=== PATIENT | female | born 1940 | race Caucasian/White ===

== ENCOUNTER → 2016-07-01 | Day surgery (SDC) | payer MEDICARE, OTHER ==
[~2016-07-01] VITALS: Ht 167.6 cm; Wt 92.9 kg
[~2016-07-01] MED LIST: CPAP INH; DELTASONE20 MG PO; FLEXERIL10 MG PO; FLONASE 50 MCG/16 GM NOSE; LIPITOR10 MG PO; MECLIZINE HCL25 MG PO; MULTAQ400 MG PO; NORCO 5-325 TA1 EACH PO; OMNICEF 300MG300 MG PO; PRILOSEC20 MG PO; XARELTO20 MG PO; [UNRECOGNIZED DRUG - OTHER] PO; [UNRECOGNIZED DRUG - OTHER] PO; [UNRECOGNIZED DRUG - OTHER] PO
--- NOTE | ~2016-07-01 | OR ---
PATIENT'S NAME: QIANA GÓMEZ [facility] AGE: 75 Y [address] ROOM: [place] [address] LOCATION: [facility] ADMIT DATE: 07/01/2016 OR/Procedure Report DISCHARGE DATE: FAMILY PHYSICIAN: Aminah Villareal MD ATTENDING PHYSICIAN: Aminah Villareal SURGEON: Logan Stanton MD [employer] ARCHITECT: DATE OF PROCEDURE: 07/01/2016 PROCEDURE PERFORMED: Colonoscopy with polypectomy. INDICATION: Anemia. MEDICATIONS: Please see anesthesiology record for details. CONSENT: The risks/benefits/alternatives were discussed and the patient or her power of insurance defense attorney expressed understanding and agreed to proceed. Informed consent was obtained and placed on the chart. Time-out was completed prior to starting the procedure. PROCEDURE: Patient was placed in the left lateral decubitus position. One lead EKG monitoring was used along with intermittent blood pressure monitoring and pulse oximetry. The above medications were given and titrated to response. Once adequate sedation was completed, rectal exam was performed. The colonoscope was then passed through the rectum, into the sigmoid colon. The scope was then passed through the descending, transverse and ascending colon. The scope was then passed into the cecum. The cecum was identified by the ileocecal valve and appendiceal orifice. The scope was then withdrawn. On withdrawal, the mucosa of the colon was examined. In the rectum, retroflexion was completed. The scope was then withdrawn from the patient. The patient tolerated the procedure well. There were no complications. SUMMARY OF FINDINGS: 1. A 2 mm ascending colon polyp, removed using snare with cautery. 2. Normal colonic mucosa. There was no blood in the colon or any other large lesions. 3. Internal hemorrhoids grade 2, medium, nonbleeding. 4. Diverticulosis, mainly in the sigmoid colon. ASSESSMENT AND PLAN: Anemia: Nothing seen on colonoscopy to explain the patient's symptoms. There was no evidence anywhere in the GI tract or any blood loss. I recommend following her hemoglobin as an outpatient and treating with iron accordingly if is iron deficient. No plan for further GI workup at this time. If no source is found down the road and her hemoglobin does not come up appropriately, a capsule endoscopy could be consider to PATIENT'S NAME: QIANA GÓMEZ [facility] AGE: 75 Y [address] ROOM: [place], [place] [address] LOCATION: GEND ADMIT DATE: 07/01/2016 OR/Procedure Report DISCHARGE DATE: FAMILY PHYSICIAN: Aminah Villareal MD ATTENDING PHYSICIAN: Aminah Villareal evaluate small bowel; however, I do not think that is necessary at this time. J LAURA STANTON MD JRT/modl /[id number] d: 07/01/16 1640 t: 07/04/16 1431, OPERATIVE SUMMARY
--- NOTE | ~2016-07-01 | OR ---
PATIENT'S NAME: QIANA GÓMEZ [facility] AGE: 75 Y [address] ROOM: [place] [address] LOCATION: [facility] ADMIT DATE: 07/01/2016 OR/Procedure Report DISCHARGE DATE: FAMILY PHYSICIAN: Aminah Villareal MD ATTENDING PHYSICIAN: Aminah Villareal SURGEON: Logan Stanton MD [employer] COACH: DATE OF PROCEDURE: 07/01/2016 PROCEDURE PERFORMED: Esophagogastroduodenoscopy with biopsies. INDICATIONS: Anemia. MEDICATIONS: Please see anesthesiology record for details. CONSENT: The risks/benefits/alternatives were discussed and the patient or her power of criminal defense attorney expressed understanding and agreed to proceed. Informed consent was obtained and placed in the chart. Time-out was completed prior to starting the procedure. PROCEDURE: Patient was placed in the left lateral decubitus position. One- lead EKG monitoring was used along with intermittent blood pressure monitoring and pulse oximetry. Bite block was placed in the patient's mouth. The above medications were given and titrated to response. Once adequate sedation was completed, the endoscope was passed through the patient's mouth into the posterior oropharynx. The endoscope was then passed into the esophagus, stomach and duodenal bulb. The duodenum was examined through the third portion. The endoscope was then withdrawn into the stomach. In the stomach, retroflexion was completed. The scope was then straightened and withdrawn from the patient. The patient tolerated the procedure well. There were no complications. SUMMARY OF FINDINGS: 1. Normal proximal esophagus. 2. Distal esophagus with an irregular Z-line, highly suspicious for Carter's esophagus, two different 1-cm tongues were noted and biopsied. 3. Hiatal hernia about 4 cm. 4. Normal stomach. Status post biopsy due to the history of H. pylori. 5. Normal duodenum, status post biopsy to rule out celiac disease given the patient's anemia. ASSESSMENT AND PLAN: Anemia: Nothing obvious on exam today to explain the patient's anemia. 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 We will await biopsies for further recommendations. PATIENT'S NAME: QIAAN GÓMEZ [facility] AGE: 75 Y [address] ROOM: [place] [address] LOCATION: [facility] ADMIT DATE: 07/01/2016 OR/Procedure Report DISCHARGE DATE: FAMILY PHYSICIAN: Aminah Villareal MD ATTENDING PHYSICIAN: Aminah Villareal J LAURA STANTON MD JRT/modl /[id number] d: 07/01/16 1625 t: 07/04/16 1428, OPERATIVE SUMMARY
== END ==
LOC: GPOC 06-24 15:00 → GEND 08:33 → GPOC 09:00
PROC: 0DB88ZX Excision of Small Intestine, Via Natural or Artificial Opening Endoscopic, Diagnostic (ICD-10-PCS; principal; 2016-07-01)
PROC: 0DB48ZX Excision of Esophagogastric Junction, Via Natural or Artificial Opening Endoscopic, Diagnostic (ICD-10-PCS; 2016-07-01)
PROC: 0DB68ZX Excision of Stomach, Via Natural or Artificial Opening Endoscopic, Diagnostic (ICD-10-PCS; 2016-07-01)
PROC: 0DBK8ZX Excision of Ascending Colon, Via Natural or Artificial Opening Endoscopic, Diagnostic (ICD-10-PCS; 2016-07-01)
DX: D12.2 Benign neoplasm of ascending colon (principal); K64.8 Other hemorrhoids; K57.30 Diverticulosis of large intestine without perforation or abscess without bleeding; I25.10 Atherosclerotic heart disease of native coronary artery without angina pectoris; I48.91 Unspecified atrial fibrillation; E78.5 Hyperlipidemia, unspecified; K21.9 Gastro-esophageal reflux disease without esophagitis; M19.90 Unspecified osteoarthritis, unspecified site; G47.33 Obstructive sleep apnea (adult) (pediatric); Z88.0 Allergy status to penicillin; Z88.2 Allergy status to sulfonamides; Z79.899 Other long term (current) drug therapy
CPT/HCPCS: J7030

== ENCOUNTER → 2016-08-16 | Outpatient (CLI) | payer MEDICARE, OTHER | END | disposition disaster alternative care site (69) | LOC: GBCOE 09:02 | DX: Z12.31 Encounter for screening mammogram for malignant neoplasm of breast (principal) | CPT/HCPCS: G0202 ==

== ENCOUNTER 2016-10-25 14:00 | Observation (INO) | payer MEDICARE, OTHER ==
[~2016-10-25] VITALS: Ht 167.6 cm; Wt 94.2 kg
--- NOTE | ~2016-10-25 | ER ---
PATIENT'S NAME: QIANA GÓMEZ [facility] AGE: 76 Y [address] ROOM: [address] [address] LOCATION: [facility] [place] ADMIT DATE: 10/25/2016 ER/Outpatient Report DISCHARGE DATE: FAMILY PHYSICIAN: Aminah Villareal MD ATTENDING PHYSICIAN: BARRY PHILLIPS Time of Arrival: 1400. Time Seen: 1429. IDENTIFICATION: 76-year-old female. CHIEF COMPLAINT: Headache and ringing in her ears. HISTORY OF PRESENT ILLNESS: The patient is a very pleasant 76-year-old female from who was referred here by Dr. Li. She will be on admission per Dr. Matthews. Dr. Matthews was contacted. He did want her to go ahead and be evaluated initially in the emergency room but plan for admission per the hospitalist service. Past history dates back to the last couple of months, she started out with a ringing in her ear and a pressure sensation on the right side of her head. She was treated with meclizine and antibiotics by Dr. Villareal on September 14. Her symptoms persisted. She was evaluated by Dr. Li on and had an MRI on the , all of that evaluation and workup was negative. She was given prednisone and Callie on the by Dr. Villareal and then just recently was started on cefdinir antibiotic in [place] by her physician there. Her symptoms are unchanged. She saw Dr. Li today in [place] in the clinic and was recommended for her to come to [facility] to have a spinal tap. She complains of right-sided facial and head pressure, dizziness. No nausea or vomiting, and she does have persistent ringing in her right ear. She has had some fever in the past, but she is afebrile here. She has slight nausea, no vomiting, and she has some dizziness which she describes as a spinning sensation, worse with movement. PAST MEDICAL HISTORY: ALLERGIES: TO PENICILLIN, SULFA, AND PRADAXA. CURRENT MEDICATIONS: 1. Cefdinir 300 mg b.i.d., three days left. 2. Xarelto 20 mg at bedtime. Last dose was last night. 3. Multaq 400 mg b.i.d. 4. Omeprazole 20 mg b.i.d. PATIENT'S NAME: QIANA GÓMEZ [facility] AGE: 76 Y [address] ROOM: [id number], [place] [address] LOCATION: [facility] [place] ADMIT DATE: 10/25/2016 ER/Outpatient Report DISCHARGE DATE: FAMILY PHYSICIAN: Aminah Villareal MD ATTENDING PHYSICIAN: BARRY PHILLIPS 5. Atorvastatin 10 mg daily. MEDICAL PROBLEMS: Atrial fibrillation, DVT, hyperlipidemia, gastroesophageal reflux disease. PRIOR SURGERIES: Endoscopy, tonsillectomy, adenoidectomy, carpal tunnel repair, cholecystectomy, partial hysterectomy. SOCIAL HISTORY: The patient is . Lives in [place] with her . Tobacco use, denies. Alcohol use, denies. Drug use, denies. FAMILY HISTORY: No pertinent family history identified. REVIEW OF SYSTEMS: All systems reviewed and negative other than what is noted in the HPI. PHYSICAL EXAMINATION: VITAL SIGNS: Height 5 feet and 6 inches, weight 94.3 kg. Blood pressure 165/72, pulse 66, respirations 18, temperature 97, saturations 99%. GENERAL: This is a 76-year-old female, in no acute distress. HEENT: Head: Normocephalic, atraumatic. Ears: TMs translucent to both ears. Eyes: Pupils equal and reactive to light and accommodation. Extraocular movements intact. No nystagmus is appreciated, but it does reproduce her symptoms. Nose; mucosa pink. No lesions or drainage. Mouth; no lesions. Pharynx benign. NECK: Supple. No lymphadenopathy. No nuchal rigidity. LUNGS: Clear to auscultation. Breath sounds are equal. HEART: Regular rate and rhythm. No murmur, rub, or gallop. ABDOMEN: Bowel sounds present. Soft and nondistended. No hepatosplenomegaly. No palpable masses. Nontender. SKIN: [address], warm, and dry. No lesions or rashes noted. NEUROLOGIC: The patient is alert and oriented x4. Cranial nerves 2 through 12 grossly intact. Motor strength 5/5 throughout. Sensation is intact to light touch. LABORATORY DATA AND IMAGING STUDIES: Head CT without contrast, negative per Dr. Adair, radiologist. Hemoglobin 12.6, hematocrit 38.1, platelets 313, white count 5.8, with a normal differential. Sodium 141, potassium 3.9, chloride 109, CO2 of 24, BUN 22, creatinine 1.1, blood sugar 108. Liver enzymes normal. CRP 0.75. Sedimentation rate of 30. Lactate 1.0. Procalcitonin less than 0.05. PATIENT'S NAME: QIANA GÓMEZ [facility] AGE: 76 Y [address] ROOM: [place] [address] LOCATION: [facility] [place] ADMIT DATE: 10/25/2016 ER/Outpatient Report DISCHARGE DATE: FAMILY PHYSICIAN: Aminah Villareal MD ATTENDING PHYSICIAN: BARRY PHILLIPS EMERGENCY DEPARTMENT COURSE: An IV was initiated. Records were reviewed. We did speak with Dr. Matthews as well as Dr. Phillips, hospitalist. The patient had lab work done on October 12 to include a sedimentation rate of 5, ferritin 12.6, iron 63, iron binding capacity 430, hemoglobin 12.6, hematocrit 38.6, platelets 338, white count, 13. IMPRESSION AND PLAN: Head pressure and dizziness persisting for two months, unrelenting. The patient will be admitted, observation per the hospitalist service. Her Xarelto will be held for potential spinal tap to be performed tomorrow. Dr. Phillips evaluated the patient in the emergency room. DORITA VILLASENOR MD CAR/modl /[id number] d: 10/25/162141 t: 11/02/162040, OUTPATIENT REPORT
--- NOTE | ~2016-10-25 | HP ---
PATIENT'S NAME: QIANA GÓMEZ [facility] AGE: 76 Y [address] ROOM: [address] [address] [place] [facility] [place] DATE: 10/25/2016 History & Physical DISCHARGE DATE: FAMILY PHYSICIAN: Aminah Villareal MD ATTENDING PHYSICIAN: BARRY WANG DATE OF SERVICE: 10/25/2016 CHIEF COMPLAINT: Ear and facial pain, dizziness, tinnitus, ongoing headache. HISTORY OF PRESENT ILLNESS: This is a very pleasant 76-year-old female, who presents today at request of her outside ENT physician, Dr. Li as well as her primary care doctor, Dr. Villareal for further evaluation of ongoing right-sided frontal facial pain with associated headache, this has been ongoing and progressive over the past two to two and half months. Workup as an outpatient has been extensive and includes an MRI, which patient reports has been done on September 15 at [facility] [place]. She has also been treated with antibiotics for concern for otitis media as potentially contributing versus sinusitis, without any improvement in this. She recently was treated with prednisone and Callie. This was done at the end of September with no improvement. She was recently started on cefdinir subsequently as a next attempted antibiotic therapy again without improvement. She notes her primary complaint today is right head pressure not described as pain. She does have a medical history notable for atrial fibrillation and history of DVT x2 and is on Xarelto chronically. Other workup from PCPs office was sent for review, notes a recent sedimentation rate of 5. White blood cell count that was 13 on October 12, is now 5.8 in the emergency department. The patient does deny any recent fevers. Also of note, the patient denies any significant travel history of late. She does note that she had multiple mosquito bites around time of symptom onset a couple of months ago, but feels these were no different than the typical mosquito bite and incidental. PAST MEDICAL HISTORY: 1. Atrial fibrillation, on Xarelto. 2. History of DVT x2. 3. GERD. 4. Hyperlipidemia. 5. Internal hemorrhoids. 6. Chronic anemia. 7. Vertigo as documented above. PAST SURGICAL HISTORY: Reviewed and noncontributory to current presentation. PATIENT'S NAME: QIANA GÓMEZ [facility] AGE: 76 Y [address] ROOM: [address] [address] [place] [facility] [place] DATE: 10/25/2016 History & Physical DISCHARGE DATE: FAMILY PHYSICIAN: Aminah Villareal MD ATTENDING PHYSICIAN: BARRY WANG FAMILY HISTORY: Fully reviewed, notable for some generalized heart disease as well as diabetes, otherwise unremarkable and noncontributory to current presentation. SOCIAL HISTORY: The patient is a lifelong nonsmoker. Although she states she "experimented with this as a young teenager", and is a nondrinker also. Lives with her . ALLERGIES: PENICILLIN'S CAUSING HIVES. SULFA DRUGS ALSO CAUSING HIVES. PRADAXA CAUSING PRURITUS. MEDICATIONS: Currently being reconciled though notable for: 1. Xarelto 20 mg at bedtime. 2. Multaq 400 mg b.i.d. 3. Omeprazole 20 mg b.i.d. 4. Atorvastatin 10 mg at bedtime. No recent new medications as the patient has been sporadic and taking meclizine, which was also recently prescribed. REVIEW OF SYSTEMS: Complete review of systems performed and negative except as noted above in HPI. PHYSICAL EXAMINATION: VITAL SIGNS: Reviewed in the ER notable for temp 97.0, pulse 66, blood pressure 165/72, respirations 18, saturating 99% on room air. Weight 94.3 kg. Pain currently 3/10. GENERAL: The patient is in no acute distress, alert, and lying comfortably in the emergency department bed. HEAD: Normocephalic and atraumatic. EARS: Normal external pinna. No appreciable swelling periarticularly. TMs visualized bilaterally and clear. Left ear with mild punctate hemorrhage of external canal likely secondary to recent instrumentation. EYES: Pupils equal, round, and reactive to light. Extraocular muscles intact. No nystagmus appreciated. No scleral icterus or conjunctival injection. CARDIOVASCULAR: Regular rate and rhythm. No murmurs, rubs, or gallops appreciated. 2+ pulses bilaterally in radial and dorsalis pedis. No peripheral edema. LUNGS: Clear to auscultation bilaterally, saturating well on room air with normal respiratory effort. ABDOMEN: Soft, nontender, and nondistended. Normoactive bowel sounds. PATIENT'S NAME: QIANA GÓMEZ [facility] AGE: 76 Y [address] ROOM: [address] [address] [place] [facility] [place]MIT DATE: 10/25/2016 History & Physical DISCHARGE DATE: FAMILY PHYSICIAN: Aminah Villareal MD ATTENDING PHYSICIAN: BARRY WANG EXTREMITIES: Without lesion or edema as noted above. SKIN: Benign exam of trunk and exposed extremities. NEUROLOGIC: The patient is alert and oriented x3. Cooperative and pleasant with exam without focal deficits including no strength or sensory deficits appreciated on my exam. LABS AND IMAGING: Lab and imaging reviewed and notable for a white count of 5.8, lactic acid 1.0. CT head, negative for acute abnormality. ASSESSMENT: 1. Chronic otalgia. 2. Chronic atrial fibrillation, anticoagulated. 3. History of deep venous thrombosis. 4. Gastroesophageal reflux. PLAN: Difficult to ascertain the etiology of chronic otalgia with associated tinnitis. Per PCPs office, MRI performed, ruling out acoustic neuroma or other anatomical abnormality. We will work to obtain results of this MRI. No other recent infectious concerns though white count was elevated recently. The patient also had been on recent steroids. No indication currently for antibiotic therapy. We will further workup with LP once off Xarelto, last dose was the evening of October 24, so we will hold off on this dose tonight and consider LP with Neurology in the morning. We will send for CSF studies to include potentially infectious panel by PCR most notably for West Nile, also we will send cell count protein glucose and obtain opening pressure on at the time of LP and further studies will be pending this evaluation. As noted above, CT head was negative as was MRI recently. We will attempt to diagnose and treat any acute potential cause for her ongoing symptoms now over a subacute time frame, and if workup unfruitful, likely will be stable for discharge 1-2 days with outpatient followup and potentially with headache specialist. The patient is full code. I spent 35 minutes on date of admission in direct patient care and coordination of plan of care. BARRY WANG MD JDS/modl PATIENT'S NAME: QIANA GÓMEZ [facility] AGE: 76 Y [address] ROOM: [address] [address] [place]: [facility] [place] DATE: 10/25/2016 History & Physical DISCHARGE DATE: FAMILY PHYSICIAN: Aminah Villareal MD ATTENDING PHYSICIAN: BARRY WANG /[id number] D: [id number] T: [id number] HISTORY & PHYSICAL
--- NOTE | ~2016-10-25 | CON ---
PATIENT'S NAME: QIANA GÓMEZ [facility] AGE: 76 Y [address] ROOM: [address] [address] [place] [facility] [place]: 10/25/2016 Consultation DISCHARGE DATE: 10/27/2016 FAMILY PHYSICIAN: Aminah Villareal MD ATTENDING PHYSICIAN: Andrzej Phillips DATE OF CONSULTATION: 10/26/2016 REASON FOR CONSULTATION: The patient was seen in neurologic consultation on October 262016, at the request of the hospitalist, Dr. Phillips. HISTORY OF PRESENT ILLNESS: Ms. Gómez is a pleasant, 76-year-old female patient, who was sent to our hospital by her primary care physician. Essentially, the patient has no significant prior medical history, other than atrial fibrillation for which she has been maintained on Xarelto and a history of DVT. The patient states that she has been experiencing a headache that she characterizes as a migraine headache associated with photophobia and phonophobia lasting for about 1 month. It came fairly much out of the blue. In the past history, she denies having a history of migraine headaches. Her headache was almost exclusively right side of the face and involved mostly the right frontal region of the head, also there was some radiation of the pain to the temporal region of the head and down into the right lateral portion of the neck. The patient in the outpatient setting had an extensive workup to rule out any intracranial process including an MRI on September 15, which she was reported to be normal. She was apparently treated with antibiotics for middle ear infection versus a sinusitis infection. Her headache did not improve. Furthermore, she was given a short dose of prednisone as well as antihistamines. Headaches have been absolutely constant and had not been relieved with puan-[id number] medicines for pain such as Tylenol. Further workup at her physician's office revealed a normal sedimentation rate and essentially normal white count. The patient denies any recent upper respiratory tract infections and she denies any meningismus for which she would have pain on bending the neck forward and back. She would have some highlighting of increased tenderness on the right strap muscles of the neck. She had no known sick contacts and no known rashes and no new medications were started. PAST MEDICAL HISTORY: She has a history of atrial fibrillation on Xarelto, history of gastroesophageal reflux, hyperlipidemia, and history of DVT x2. ALLERGIES: SHE HAS ALLERGY TO PENICILLINS, WHICH GIVES HER HIVES, ALLERGY TO [employer] WELL PRADAXA. PATIENT'S NAME: QIANA GÓMEZ [facility] AGE: 76 Y [address] ROOM: [id number] [place], [place] [id number] [place] [facility] [place]: 10/25/2016 Consultation DISCHARGE DATE: 10/27/2016 FAMILY PHYSICIAN: Aminah Villareal MD ATTENDING PHYSICIAN: Andrzej Phillips CURRENT MEDICATIONS: 1. Xarelto 20 mg tablet daily. 2. Omeprazole 20 mg delayed release tablet. 3. Meclizine 25 mg tablet 3 times a day p.r.n. 4. Fluticasone 50 mcg nasal suspension 1 spray in each nostril twice a day. 5. Ferrous gluconate 325 mg tablet 1 tablet every other day. 6. Atorvastatin 10 mg p.o. at bedtime. 7. Callie 180 mg tablet 1 tablet as needed for allergies. SOCIAL HISTORY: The patient was previously. She is . She has 5 children. She is a high-school graduate. Occasional alcohol use. She has remarried. FAMILY HISTORY: Shows history of sister with malignant breast cancer. Brother, who has also cancer. Paternal grandmother with diabetes. Father with prostate cancer and mother had a stroke by history. REVIEW OF SYSTEMS: CONSTITUTIONAL: The patient appears to be in no acute distress, but she has discomfort due to her head pain. EYES: She denies any double vision, or skew deviation of her vision. ENT: She denies any hearing loss or tinnitus. CARDIOVASCULAR: She denies any history such as shortness of breath or palpitations. She has a history of atrial fibrillation for which she is maintained on Xarelto. RESPIRATORY: She has normal breathing. MUSCULOSKELETAL: She has exquisite tenderness into the right strap muscles and the torsion to her right neck such that her neck is tilted and a muscle spasm. NEUROLOGICAL: She has persistent headache for 1 month often almost on a daily basis associated with either low-grade migraine or more severe migraine headache. PSYCHIATRIC: History is normal. PHYSICAL EXAMINATION: GENERAL: Ms. Gómez is sitting up in bed. Her speech is clear. VITAL SIGNS: Pulse is 72 and regular, respiration rate 12, blood pressure 156/72, temperature is 97 degrees, and saturates at 99% on room air. Her weight is 94.3 kg. Pain is generally around the 3/10. She appears to be in no acute distress currently. HEENT: I noted that her head is normocephalic, nontraumatic, and there was no vesicular eruptions, as a clear increased tone and spasm into the splenius capitis muscle on the right side of the neck as well as increased tone in the PATIENT'S NAME: QIANA GÓMEZ [facility] AGE: 76 Y [address] ROOM: [id number] [place], [place] [address] [place] [facility] [place]: 10/25/2016 Consultation DISCHARGE DATE: 10/27/2016 FAMILY PHYSICIAN: Aminah Villaeral MD ATTENDING PHYSICIAN: Andrzej Phillips trapezius crest muscles as well as the sternocleidomastoid muscle. The head is tilted toward the right a bit and there is bulked-up muscle on the right side compared to the left side. Tenderness to muscle palpation in that area. There is no swelling of the muscle region and no excoriations of the skin. NEURO: Cranial nerves 2 through 12 was intact. Her power in the upper and lower extremities are 5/5 with normal bulk and tone. Normal coordination on uaaafk-yy-fcps and waov-fn-ylvp. Her rapid alternating hand movements are normal. There is no pronator drift. Her gait is normal, narrow based and negative Romberg. IMPRESSION: Looking at the patient, she clearly has muscle spasms of the elevated muscles of the neck, which is tender to palpation. I do believe that this is a spastic muscle spasm of these muscles that is likely contributing to her chronic daily headaches at this point in time. Therefore, I have recommended trigger point injection therapy to bring down these muscle spasms. She also has some torsion of the muscles on the right side, which would be easily relieved with the trigger point injection of lidocaine and Kenalog. I think that this is the only process that is going on here as she no evidence of anything to be concerned about. She has normal power in her arms and no evidence of radiculopathy. The cause for these muscle spasms is unknown, but it may be that the patient had stressed out these muscles independently from doing some lifting, which she does admit to. As the patient is likely stable for discharge, we will see the patient on neurologic followup in our office for further trigger point injection therapy over the course of the next 3 weeks. MD SUMAYA CASILLAS/feli /[id number] d: 11/08/16 1529 t: 11/15/16 2105, CONSULTATION REPORT
--- NOTE | ~2016-10-25 | DS ---
PATIENT'S NAME: QIANA GÓMEZ [facility] AGE: 76 Y [address] ROOM: [place] [address] LOCATION: [facility] [place] ADMIT DATE: 10/25/2016 Discharge Summary DISCHARGE DATE: 10/27/2016 FAMILY PHYSICIAN: Aminah Villareal MD ATTENDING PHYSICIAN: Andrzej Phillips ADMITTING DIAGNOSIS: Chronic migraine with muscle spasm. DISCHARGE DIAGNOSIS: Chronic migraine with muscle dystonia, improving. SECONDARY DIAGNOSES: 1. Muscle dystonia. 2. Paroxysmal atrial fibrillation. 3. History of deep venous thrombosis. 4. Obstructive sleep apnea. 5. Gastroesophageal reflux disease. 6. Obesity. PROCEDURE: CT head which was unremarkable and a trigger point injection of muscle. CONSULTATION: Neurology. HISTORY OF PRESENT ILLNESS: The patient is a 76-year-old female, who presented with headache at the request of ENT physician, Dr. Li as well as her primary care physician Dr. Villareal. The patient reports that she has been ongoing right-sided frontal facial headache with fullness of right ear, this has been going on for 2-1/2 months. Workup as outpatient has been extensive includes MRI. The patient reports that has been done on September 15 and has been negative. Has also been treated for antibiotics for concerns of otitis. Has also been seen by ENT and has had a hearing test which was unremarkable. She has also been tried on Callie and prednisone without adequate improvement. HOSPITAL COURSE: The patient was admitted. Was seen by Neurology Dr. Brian. From the history and physical examination, the patient was noted to have a chronic migraine associated with muscle spasm and torticollis of neck muscle. The patient had a trigger injection with Kenalog with adequate improvement of symptoms. The patient was also started on 250 mg of Solu-Medrol IV b.i.d. during stay with improvement of symptoms. The patient was discharged home on tapered dose of prednisone and follow up with Dr. Brian for repeat trigger muscle injection. CONDITION: Stable. PATIENT'S NAME: QIANA GÓMEZ [facility] AGE: 76 Y [address] ROOM: [place] [address] LOCATION: [facility] [place] ADMIT DATE: 10/25/2016 Discharge Summary DISCHARGE DATE: 10/27/2016 FAMILY PHYSICIAN: Aminah Villareal MD ATTENDING PHYSICIAN: Andrzej Phillips DISPOSITION: Home. DISCHARGE MEDICATION: Please see MAR. DISCHARGE INSTRUCTIONS: If the patient continued to have worsening of headache, nausea, vomiting, change in vision, fever, chills, and muscle rigidity to call physician. Follow up with PCP and Dr. Brian in 1 week. PHYSICAL EXAMINATION: VITAL SIGNS: Stable. HEAD: Normocephalic, atraumatic. EYES: Extraocular muscle intact. CHEST: Clear to auscultation bilaterally. HEART: Regular rate and rhythm. No murmurs, rubs, or gallops. ABDOMEN: Soft, nontender, and nondistended. ENVIRONMENTAL CONTROL ADMINISTRATOR: The patient is alert and oriented x3. Motor and sensory grossly intact. Greater than 30 minutes was spent on discharge planning. DAGMAWE MD ALEXUS BARTHOLOMEW/feli /[id number] d: 10/28/16 0520 t: 11/05/16 1559, DISCHARGE SUMMARY
--- NOTE | ~2016-10-25 | OR ---
PATIENT'S NAME: QIANA GÓMEZ [facility] AGE: 76 Y [address] ROOM: [place] [address] LOCATION: [facility] [place] ADMIT DATE: 10/25/2016 OR/Procedure Report DISCHARGE DATE: 10/27/2016 FAMILY PHYSICIAN: Aminah Villareal MD ATTENDING PHYSICIAN: Barry Phillips SURGEON: Barry Brian MD COIL MACHINE OPERATOR: DATE OF PROCEDURE: 10/26/2016 This is a procedure associated with the patient having a right neck muscle spasm associated with some dystonic portion of the neck. The patient is otherwise healthy. She has a history of paroxysmal atrial fibrillation, on Xarelto. PROCEDURE: This procedure was a trigger point injection with the use of lidocaine and Kenalog into the paraspinal muscles on the right neck region. PROCEDURE IN DETAIL: With a 10 mL syringe and a 22-gauge needle, 8 mL of 1% lidocaine as well as 1 mL of 40 mg of Kenalog was infused into the paraspinal muscles and the trapezius crest muscles on the right side of the patient's neck region. I offered the patient immediate relief over the next hour and better range of motion with full movement of her neck right to left. The patient will have followup trigger point injection therapy at least once or twice more, to follow up in Neurology office. BARRY BRIAN MD JRM/modl /[id number] d: 11/08/16 1522 t: 11/08/16 1710, OPERATIVE SUMMARY
[~2016-10-25 14:00] MED LIST changes: -DELTASONE20 MG PO; -FLONASE 50 MCG/16 GM NOSE; -MECLIZINE HCL25 MG PO; -OMNICEF 300MG300 MG PO
[2016-10-25 15:07] LABS: BASOPHIL # 0.1 K/uL (0.0-0.2); EOSINOPHIL # 0.1 K/uL (0.0-0.5); EOSINOPHIL % 0.9 %; HEMATOCRIT 38.1 % (33.0-46.0); HEMOGLOBIN 12.6 g/dL (10.0-15.0); IMMATURE GRANULOCYTE % 0.2 %; LYMPHOCYTE # 1.6 K/uL (0.8-4.0); LYMPHOCYTE % 27.3 %; MCH 27.1 pg (27.0-34.0); MCHC 33.1 gm/dL (32.0-36.5); MCV 81.9 fl (83.0-98.0); MONOCYTE # 0.8 K/uL (0.0-1.0); MONOCYTE % 13.2 %; MPV 8.8 fl (9.4-12.4); NEUTROPHIL # (ANC) 3.4 K/uL (1.8-7.8); NEUTROPHIL % 57.4 %; NRBC % 0 /100WBC (0-0.00); PLATELET COUNT 313 K/uL (150-450); RBC 4.65 M/uL (3.50-5.50); RDW-CV 18.6 % (11.9-14.6); WBC 5.8 K/uL (4.0-11.0)
[2016-10-25 15:15] LABS: INR - (THERAPEUTIC) 1.12 (0.92-1.07); PROTIME 11.8 SECONDS (9.8-11.4); PTT 30 SECONDS (25-32)
[2016-10-25 15:27] LABS: ANION GAP 11.9 (10.0-19.0); CALCIUM 8.4 mg/dL (8.5-10.5); CREATININE 1.1 mg/dL (0.5-1.1); POTASSIUM 3.9 mMol/L (3.7-5.1); TOTAL BILIRUBIN 0.2 mg/dL (0.0-1.5); TOTAL PROTEIN 6.9 g/dL (6.0-8.4)
[2016-10-26 04:39] LABS: BASOPHIL # 0.1 K/uL (0.0-0.2); EOSINOPHIL # 0.1 K/uL (0.0-0.5); EOSINOPHIL % 1.6 %; HEMOGLOBIN 12.3 g/dL (10.0-15.0); LYMPHOCYTE # 1.6 K/uL (0.8-4.0); LYMPHOCYTE % 31.9 %; MCH 26.6 pg (27.0-34.0); MCHC 32.4 gm/dL (32.0-36.5); MCV 82.3 fl (83.0-98.0); MONOCYTE # 0.7 K/uL (0.0-1.0); MONOCYTE % 13.8 %; MPV 8.5 fl (9.4-12.4); NEUTROPHIL # (ANC) 2.6 K/uL (1.8-7.8); NEUTROPHIL % 51.7 %; NRBC % 0 /100WBC (0-0.00); PLATELET COUNT 285 K/uL (150-450); RBC 4.62 M/uL (3.50-5.50); RDW-CV 18.6 % (11.9-14.6); WBC 5.1 K/uL (4.0-11.0)
[2016-10-26] MEDS ORDERED: OMNICEF 300MG300 MG PO (10:20)
[2016-10-26] MEDS ORDERED: FLONASE 50 MCG/16 GM NOSE (10:20)
[2016-10-26] MEDS ORDERED: MECLIZINE HCL25 MG PO (10:21)
[2016-10-27] MEDS ORDERED: DELTASONE20 MG PO (13:09)
== END 2016-10-27 13:45 | disposition disaster alternative care site (69) ==
LOC: GMED 14:00 → GMSU 15:53
PROVIDERS: Family Medicine; ADMIT Internal Medicine
DX: G43.909 Migraine, unspecified, not intractable, without status migrainosus (principal); G24.8 Other dystonia; I48.0 Paroxysmal atrial fibrillation; G47.33 Obstructive sleep apnea (adult) (pediatric); K21.9 Gastro-esophageal reflux disease without esophagitis; H92.09 Otalgia, unspecified ear; E66.9 Obesity, unspecified; Z86.718 Personal history of other venous thrombosis and embolism; D64.9 Anemia, unspecified; E78.5 Hyperlipidemia, unspecified; Z79.899 Other long term (current) drug therapy; Z88.0 Allergy status to penicillin; Z88.2 Allergy status to sulfonamides
CPT/HCPCS: G0378; G8978; G8979; G8980; J2930; J7050